=== PATIENT | female | born 1985 | race Caucasian/White ===

== ENCOUNTER 2016-12-13 18:19 | Observation (INO) | payer MEDICAID ==
[2016-12-13 18:21] VITALS: BP 178/92; PULSE 104; RESP 24; TEMP 97.8; O2SAT 97
--- NOTE | 2016-12-13 20:17 | PD ---
Physical Exam Date Seen by Provider: Dec 13, 2016 Time Seen by Provider: 20:17 Narrative 31 YOWF SLIP AND FALL. INJURY TO L LOWER LEG. ALSO HIT HEAD. NO LOC VSS. AWAITING BED PLACEMENT Data Data Last Documented VS Vital Signs Date Time Temp Pulse Resp B/P Pulse Ox O2 Delivery O2 Flow Rate FiO2 12/13/16 18:21 97.8 104 24 178/92 97 Room Air [facility] Medical Record Reviewed: Yes Supervised Visit with ANGELA: Yes Wilian Christy Dec 13, 2016 20:17
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
[2016-12-13] MEDS ORDERED: POTA-163 PO (21:54)
[2016-12-13] MEDS ORDERED: FURO1TAB60 PO (21:54)
[2016-12-13] MEDS ORDERED: ALBUAER3 INH (21:54)
[2016-12-13] MEDS ORDERED: TRAM50TA PO (21:54)
[2016-12-13] MEDS ORDERED: ACETAMINOPHEN/HYDROcodone 325 MG/5 MG TAB PO ONE (22:30)
--- NOTE | 2016-12-13 22:51 | RADRPT ---
EXAM DATE/TIME: 12/13/2016 22:32 [facility] COMPARISON: No previous studies available for comparison. INDICATIONS : Left ankle pain after fall. MEDICAL HISTORY : None. SURGICAL HISTORY : None. ENCOUNTER: Initial ACUITY: 1 day PAIN SCORE: 10/10 LOCATION: Left ankle. FINDINGS: No definite fractures, dislocations, lytic, or sclerotic lesions are seen. There are hypertrophic forrest nges in multiple joints with calcaneal spurs. CONCLUSION: Chronic changes and no evidence for acute fracture. Sunitha Varela MD on December 13, 2016 at 22:49 Board Certified Radiologist. This report was verified electronically.
--- NOTE | 2016-12-13 22:52 | RADRPT ---
EXAM DATE/TIME: 12/13/2016 22:34 [facility] COMPARISON: No previous studies available for comparison. INDICATIONS : Left knee pain after fall. MEDICAL HISTORY : None. SURGICAL HISTORY : None. ENCOUNTER: Initial ACUITY: 1 day PAIN SCORE: 10/10 LOCATION: Left Knee. 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 No definite fractures, disl ocations, lytic, or sclerotic lesions are seen. CONCLUSION: Chronic changes and no evidence for acute fracture. Sunitha Varela MD on December 13, 2016 at 22:50 Board Certified Radiologist. This report was verified electronically.
[2016-12-13 22:55] VITALS: BP 140/81; PULSE 96; RESP 19; O2SAT 99
[2016-12-14] MEDS ORDERED: SODIUM CHLORIDE 0.9% FLUSH 10 ML FLUSH IV FLUSH PRN ×2 (00:30→00:45)
[2016-12-14] MEDS ORDERED: NALOXONE HCL 0.4 MG/ML AMP IV PRN (00:45)
[2016-12-14 01:39] LABS: AUTOMATED NEUTROPHIL # 4.6 TH/MM3 (1.8-7.7); BASOPHIL % 0.3 % (0.0-2.0); EOSINOPHIL # 0.2 TH/MM3 (0-0.4); EOSINOPHIL % 2.2 % (0.0-4.0); HEMATOCRIT 31.4 % (35.0-46.0); LYMPH % 30.1 % (9.0-44.0); LYMPHOCYTE # 2.3 TH/MM3 (1.0-4.8); MEAN CELL VOLUME 72.1 FL (80.0-100.0); MEAN CORPUSCULAR HEMOGLOBIN 23.2 PG (27.0-34.0); MEAN CORPUSCULAR HGB CONC 32.1 % (32.0-36.0); MONO % 6.7 % (0.0-8.0); NEUT % 60.7 % (16.0-70.0); PLATELET COUNT 338 TH/MM3 (150-450); RED BLOOD COUNT 4.36 MIL/MM3 (4.00-5.30); WHITE BLOOD COUNT 7.5 TH/MM3 (4.0-11.0)
[2016-12-14 01:48] LABS: BICARBONATE 25.7 MEQ/L (21.0-32.0); POTASSIUM 3.9 MEQ/L (3.5-5.1)
[2016-12-14 01:51] LABS: HEMO FLAGS AUTO DIFF
[2016-12-14 02:09] VITALS: BP 126/59; PULSE 82; RESP 18; TEMP 97.8; O2SAT 96
[2016-12-14 02:26] VITALS: PULSE 95
[2016-12-14 02:37] LABS: SCAN/DIFF AUTO DIFF CONFIRMED
[2016-12-14 02:38] LABS: PLATELET ESTIMATE SMEAR NORMAL (NORMAL); PLATELET MORPHOLOGY NORMAL (NORMAL)
[2016-12-14] MEDS: ACETAMINOPHEN/HYDROcodone 325 MG/5 MG TAB PO PRN ×2 (02:39→09:07)
[2016-12-14 07:50] VITALS: BP 110/56; PULSE 92; RESP 22; TEMP 97.9; O2SAT 93
[2016-12-14] MEDS ORDERED: SODIUM CHLORIDE 0.9% FLUSH 10 ML FLUSH IV FLUSH SCH (09:00)
--- NOTE | 2016-12-14 10:32 | EKG ---
Date Performed: 12/14/2016 Time Performed: 01:14:06 PTAGE: 31 years EKG: Sinus rhythm LOW QRS VOLTAGE IN PRECORDIAL LEADS POSSIBLE ANTERIOR MYOCARDIAL INFARCTION BORDERLINE ECG NO PREVIOUS TRACING DOCTOR: Renetta Juarez Interpretating Date/Time 12/14/2016 10:26:41
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
[2016-12-14] MEDS ORDERED: NAPR500T PO (11:46)
[2016-12-14 11:56] VITALS: BP 133/75; PULSE 87; RESP 22; TEMP 98; O2SAT 95
== END 2016-12-14 13:40 | disposition home or self-care (01) ==
LOC: NEPE 18:19 → NEDA 12-14 00:32 → NEPHCDU 12-14 01:34
PROVIDERS: ADMIT Hospitalist; ATTEND Hospitalist
DX: S09.90XA Unspecified injury of head, initial encounter (principal); M17.11 Unilateral primary osteoarthritis, right knee; J45.909 Unspecified asthma, uncomplicated; E66.01 Morbid (severe) obesity due to excess calories; R60.0 Localized edema; I10 Essential (primary) hypertension; W01.198A Fall on same level from slipping, tripping and stumbling with subsequent striking against other object, initial encounter
CPT/HCPCS: 73564; 73610; 80048; 85025; 93005; 97163; 99285; G0378; G8987; G8988